=== PATIENT | male | born 1960 | race Two or more races ===

== ENCOUNTER 2025-06-26 23:35 | Inpatient (IN) | payer OTHER ==
[~2025-06-26] VITALS: Ht 177.8 cm; Wt 105.0 kg
[2025-06-27] VITALS (11 sets, daily range): BP systolic 117–136; BP diastolic 56–65; PULSE 66–72; RESP 13–19; TEMP 98.1–99; O2SAT 92–97
[2025-06-27 00:42] LABS: Hematocrit 40.2 % (41.0-53.0); Hemoglobin 13.4 g/dL (13.5-17.5); Mean Corpuscular Hemoglobin 29.1 pg (28.0-32.0); Mean Corpuscular Volume 87.4 fL (80.0-100.0); Nucleated Red Blood Cells % 0.0 %
--- NOTE | 2025-06-27 00:54 | ED.PDOC ---
Musculoskeletal HPI Comments 64 y/o obese M is BIBA for c/c shooting left hip pain, that radiates to his foot. Patient endorses on 4x day history of pain that began after sustaining a fall to the same side 4x days ago. Patient reports on falling, again, on same side, today, due to progressively worsening pain. Significant history of AFib, Anemia, Blood thinner use, CHF, and Sciatica. Denial of any additional injuries or further acute symptoms at this time. Chief Complaint: Lower Extremity Time Seen by MD: 00:15 Reviewed Notes: Nurses Notes, Rayon Coner Notes, Medications, Allergies Allergies: Coded Allergies: NO KNOWN ALLERGIES (Unverified , 06/27/25) Information Source: Patient, Emergency Med Personnel Mode of Arrival: Ambulatory Location: Left Past Medical History PAST MEDICAL HISTORY: AFIB, Anemia, CHF Past Medical History (Other): Blood thinner use Sciatica Surgical History: Denies all surgeries Family History Family History: Unknown Social History Smoker: Non-Smoker Alcohol: Denies ETOH Use Drugs: Denies Drug Use Lives In: Home All Other Systems: Reviewed and Negative (As per HPI) Physical Exam General Appearance: No Apparent Distress, Obese HEENT: Normal ENT Inspection, Pharynx Normal, TMs Normal Neck: Full Range of Motion, Non-Tender, Normal, Normal Inspection Respiratory: Chest Non-Tender, Lungs Clear, No Accessory Muscle Use, No Respiratory Distress, Normal Breath Sounds Cardiovascular: No Edema, No JVD, No Murmur, No Gallop, Normal Peripheral Pulses, Regular Rate/Rhythm Breast Exam: Deferred Gastrointestinal: No Organomegaly, Non Tender, No Pulsatile Mass, Normal Bowel Sounds, Soft Genitalia: Deferred Pelvic: Deferred Rectal: Deferred Extremities: No calf tenderness, Normal capillary refill, Normal range of motion, Swelling (edema to left foot ), Tender (diffused tenderness to LLE, extending from the hip to the foot ) Musculoskeletal : Apperance: Normal Neurologic: Alert, director of strategic marketing II-XII nml as Tested, No Motor Deficits, Normal Affect, Normal Mood, No Sensory Deficits Cerebellar Function: Normal Reflexes: Normal Skin: Dry, Normal Color, Warm, Other (erythema to left foot ) Lymphatic: No Adenopathy Was a procedure done? Was a procedure done?: No Differential Diagnosis EXT Differential Diagnosis: CHF, Deep Vein Thrombosis, Fracture, Sprain, Contusion, Strain, Neurovascular injury, Other (sciatica ) X-Ray, Labs, Meds, VS Vital Signs Date Time Temp Pulse Resp B/P (MAP) Pulse Ox O2 Delivery O2 Flow Rate FiO2 06/27/25 03:06 71 18 136/59 06/26/25 23:35 98.2 83 18 121/68 92 98.2 Lab Test 06/27/25 00:25 Range/Units White Blood Count 12.0 H 4.4-10.8 10^3/uL Red Blood Count 4.60 4.5-5.90 10^6/uL Hemoglobin 13.4 L 13.5-17.5 g/dL Hematocrit 40.2 L 41.0-53.0 % Mean Corpuscular Volume 87.4 80.0-100.0 fL Mean Corpuscular Hemoglobin 29.1 28.0-32.0 pg Mean Corpuscular Hemoglobin Concent 33.2 32.0-36.0 g/dL Red Cell Distribution Width 16.3 H 11.8-14.3 % Platelet Count 202 140-450 10^3/uL Mean Platelet Volume 9.7 6.9-10.8 fL Neutrophils (%) (Auto) 76.7 37.0-80.0 % Lymphocytes (%) (Auto) 8.5 L 10.0-50.0 % Monocytes (%) (Auto) 12.9 H 0.0-12.0 % Eosinophils (%) (Auto) 1.6 0.0-7.0 % Basophils (%) (Auto) 0.3 0.0-2.0 % Neutrophils # (Auto) 9.2 H 1.6-8.6 10 ^3/uL Lymphocytes # (Auto) 1.0 0.4-5.4 10 ^3/uL Monocytes # (Auto) 1.5 H 0-1.3 10 ^3/uL Eosinophils # (Auto) 0.2 0-0.8 10 ^3/uL Basophils # (Auto) 0 0-0.2 10 ^3/uL Nucleated Red Blood Cells 0.0 % Prothrombin Time 12.9 H 9.3-11.8 sec Prothrombin Time INR 1.24 H 0.9-1.15 Activated Partial Thromboplast Time 52.1 H 24.5-34.5 SEC Sodium Level 143 136-145 mmol/L Potassium Level 4.1 3.5-5.1 mmol/L Chloride Level 104 98-107 mmol/L Carbon Dioxide Level 28 20-31 mmol/L Anion Gap 11 5-15 Blood Urea Nitrogen 24 H 9-23 mg/dL Creatinine 1.84 H 0.700-1.30 mg/dL Glomerular Filtration Rate Calc 40 >90 mL/min BUN/Creatinine Ratio 13.0 10.0-20.0 Serum Glucose 124 H 74-106 mg/dL Lactic Acid Level 1.3 0.4-2.0 mmol/L Calcium Level 8.9 8.7-10.4 mg/dL Total Bilirubin 1.1 H 0.2-1.0 mg/dL Aspartate Amino Transferase (AST) 18 13-40 U/L Alanine Aminotransferase (ALT) 29 7-40 U/L Alkaline Phosphatase 96 46-116 U/L Total Protein 6.9 5.7-8.2 g/dL Albumin 4.0 3.2-4.8 g/dL Current Medications Medications (Trade) Dose Ordered Sig/Aliyah Route Start Time Stop Time Status Last Admin Ondansetron HCl (Zofran) 4 mg ONCE ONCE IV 06/27/25 00:15 06/27/25 00:17 DC 06/27/25 03:06 Morphine Sulfate 4 mg ONCE ONCE IV 06/27/25 00:15 06/27/25 00:17 DC 06/27/25 03:06 Cefazolin Sodium 50 ml @ 100 mls/hr ONCE ONCE IV 06/27/25 00:30 06/27/25 00:59 DC 06/27/25 03:06 Time of 1ST Reevaluation: 00:45 Reevaluation 1ST: Unchanged Patient Education/Counseling: Diagnosis, Treatment Family Education/Counseling: No Family Present Sepsis Sepsis Reasesment Focused Exam Orders: Laboratory Tests 06/27/25 00:25: Lactic Acid Level 1.3 Departure 1 Departure Time of Disposition: 03:49 Impression: Primary Impression: Cellulitis of left foot Additional Impression: Cellulitis of left lower extremity Disposition: ADMITTED INPATIENT Admit to: Med Surg Condition: Guarded Discharged With: Self Comments 64-year-old male with severe swelling of the left foot and lower leg with erythema consistent with cellulitis. Patient is having extreme pain. Lab review shows elevated white blood cell count of 12. Acute renal injury with BUN creatinine elevated at 24 and 1.84. Patient was given IV fluids and IV Ancef and vancomycin antibiotics. Patient will need to be admitted for supportive care and further workup. We will call [facility] for potential transfer. Critical Care Note Critical Care Time?: Yes (35 min-critical care time only) Critical care comment: Total critical care time: Approximately 36 minutes Due to a high probability of clinically significant, life threatening deterioration, the patient required my highest level of preparedness to intervene emergently and I personally spent this critical care time directly and personally managing the patient. This critical care time included obtaining a history; examining the patient; pulse oximetry; ordering and review of studies; arranging urgent treatment with development of a management plan; evaluation of patient's response to treatment; frequent reassessment; and, discussions with other providers. This critical care time was performed to assess and manage the high probability of imminent, life-threatening deterioration that could result in multi-organ failure. It was exclusive of separately billable procedures and treating other patients. Stability Stability form required: No Heart Score Heart Score: Heart Score Response (Comments) Value History N/A 0 EKG N/A 0 Age N/A 0 Risk Factors N/A 0 Troponin N/A 0 Total 0 I personally scribed for RAKESH NEVAREZ MD ([email or web address]) on 06/27/25 at 00:54. Electronically submitted by Gomez Deleon ([email or web address]). RAKESH NEVAREZ MD Jun 27, 2025 00:54
[2025-06-27 01:00] LABS: Alanine Aminotransferase 29 U/L (7-40); Albumin 4.0 g/dL (3.2-4.8); Alkaline Phosphatase 96 U/L (46-116); Anion Gap 11 (5-15); BUN/Creatinine Ratio 13.0 (10.0-20.0); Calcium 8.9 mg/dL (8.7-10.4); Carbon Dioxide 28 mmol/L (20-31); Chloride 104 mmol/L (98-107); INR 1.24 (0.9-1.15); Partial Thromboplastin Time 52.1 SEC (24.5-34.5); Potassium 4.1 mmol/L (3.5-5.1); Prothrombin Time 12.9 sec (9.3-11.8); Sodium 143 mmol/L (136-145); Total Protein 6.9 g/dL (5.7-8.2)
[2025-06-27 01:01] LABS: Bilirubin, Total 1.1 mg/dL (0.2-1.0)
[2025-06-27 01:06] LABS: Blood Urea Nitrogen 24 mg/dL (9-23); Glucose 124 mg/dL (74-106)
[2025-06-27] MEDS: MORPHINE SULFATE 4 MG/ML SYR/VIAL IV ONE (03:06)
[2025-06-27] MEDS: ONDANSETRON HCL 4 MG/2 ML VIAL IV ONE (03:06)
[2025-06-27] MEDS: ceFAZolin 1GM/50ML 50 ML IV ONE (03:06)
--- NOTE | 2025-06-27 03:35 | DVH ---
INDICATION: NO TRAUMA // SWELLING // PAIN COMPARISON: None TECHNIQUE: CT of the left lower extremity was performed without contrast. Volume transverse images we re obtained and reconstructed in multiple planes using bone and soft tissue algorithms. Radiation Dose Information: CT Dose: CTDI volume is 13.86 mGy. Dose-length product is 1564.73 mGy*cm FINDINGS: Moderate osteoarthritic degenerative change of the left hip includes joint space narrowing, marginal osteophytosis and acetabular and femoral subchondral sclerosis. Moderate tricompartmental osteoarthri tic tibiofemoral and patellofemoral compartment narrowing with associated osteophytosis. Moderate loss of cortical integrity and diminished mineralization of the 5th metatarsal head. These findings are nonspecific, however, may represent changes associated with osteomyelitis. There is no fracture, dislocation or aggressive osseous lesion. Moderate diffuse soft tissue edema with near water attenuation material tracking throughout the subcu taneous soft tissues of the lower leg extending into the ankle and foot. Phlegmonous change may repre sent a component of these findings. No discrete organized drainable fluid collection is present to dunn ggest abscess. Moderate suprapatellar effusion. IMPRESSION: 1. Moderate diffuse soft tissue edema with near water attenuation material tracking throughout the dunn bcutaneous soft tissues of the lower leg extending into the ankle and foot. Phlegmonous change may r epresent a component of these findings. 2. No discrete organized drainable fluid collection to suggest abscess. 3. Moderate loss of cortical integrity and diminished mineralization of the 5th metatarsal head. The se findings are nonspecific, however, may represent changes associated with osteomyelitis. 4. Moderate osteoarthritic degenerative change of the left hip and knee. 5. Moderate suprapatellar effusion.
[2025-06-27] MEDS: VANCOMYCIN 1GM/250ML KIT 250 ML IV ONE (05:55)
[2025-06-27] MEDS ORDERED: ACETAMINOPHEN 325 MG TAB PO PRN (09:00)
[2025-06-27] MEDS ORDERED: VANCOMYCIN PER PHARMACY 0 MG IV SCH (09:00)
[2025-06-27] MEDS ORDERED: ONDANSETRON HCL 4 MG/2 ML VIAL IV PRN (09:00)
--- NOTE | 2025-06-27 09:11 | DVHHP2 ---
History of Present Illness Reason for Visit: LLE pain History of Present Illness Luke Stephen is a 64-year-old male with past medical history of AFib, anemia, sciatica, CHF, laminectomy 10 years ago, and right knee surgery who presents to the ED with left lower extremity pain that started 6 days ago. Patient reports that he was seen back in January of this year for a left lower extremity open wound after running himself over with an electric wheelchair. He reports that he had to have 43 stitches in at [facility]. He also reports that he was sent home with a home health behavioral health care coordinator nurse but not on any antibiotics. Patient reports that he has been using the electric wheelchair to help him get from place to place such as doctor appointments. He reports that he does walk with a front wheel walker. He states that 6 days ago his legs felt like spaghetti noodles and gave out but he did not fall. Patient reports left foot redness swelling up to his knees. He reports the pain 10/10 sharp and constant. He states that there are no triggering or alleviating factors. He also reports that the home health behavioral health care coordinator nurse from [place] stated that the foot looks "fine". Patient on also states that he does not use any home oxygen. Patient denies any recent trauma or injury, recent sick contacts, recent travels, recent ingestion of spoiled food, fever, chills, lightheadedness, dizziness, chest pain, shortness of breath, abdominal pain, nausea, vomiting, or diarrhea. Patient reports that he never fell. Cardiovascular: AFIB, CHF Heme/Onc: Anemia NOS Past Medical History Sciatica Past Surgical History: Other (Laminectomy and right knee surgery) Family History: Cancer, Other (Mom with bone cancer) Smoke: No ALCOHOL: none Drugs: None Lives: Alone Domestic Violence: Neg Review of Systems Musculoskeletal: leg pain Skin: Other (LLE erythema with wound, POA ) Allergies: Coded Allergies: NO KNOWN ALLERGIES (Unverified , 06/27/25) Exam Vital Signs Vital Signs Date Time Temp Pulse Resp B/P (MAP) Pulse Ox O2 Delivery O2 Flow Rate FiO2 06/27/25 08:00 71 13 94 Nasal Cannula* 2 28 06/27/25 08:00 98.4 117/68 (84) 98.4 General Appearance: Alert, Oriented X3, Cooperative, No acute distress HEENT: Atraumatic, PERRLA, EOMI, Mucous membr. moist/pink Respiratory: Normal air movement Cardiovascular: Regular rate, Normal S1, Normal S2 Abdominal: Normal bowel sounds, Soft Neuro: Normal speech, Sensation intact Psych/Mental Status: Mental status NL, Mood NL Labs/Xrays Labs Test 06/27/25 00:25 Range/Units White Blood Count 12.0 H 4.4-10.8 10^3/uL Red Blood Count 4.60 4.5-5.90 10^6/uL Hemoglobin 13.4 L 13.5-17.5 g/dL Hematocrit 40.2 L 41.0-53.0 % Mean Corpuscular Volume 87.4 80.0-100.0 fL Mean Corpuscular Hemoglobin 29.1 28.0-32.0 pg Mean Corpuscular Hemoglobin Concent 33.2 32.0-36.0 g/dL Red Cell Distribution Width 16.3 H 11.8-14.3 % Platelet Count 202 140-450 10^3/uL Mean Platelet Volume 9.7 6.9-10.8 fL Neutrophils (%) (Auto) 76.7 37.0-80.0 % Lymphocytes (%) (Auto) 8.5 L 10.0-50.0 % Monocytes (%) (Auto) 12.9 H 0.0-12.0 % Eosinophils (%) (Auto) 1.6 0.0-7.0 % Basophils (%) (Auto) 0.3 0.0-2.0 % Neutrophils # (Auto) 9.2 H 1.6-8.6 10 ^3/uL Lymphocytes # (Auto) 1.0 0.4-5.4 10 ^3/uL Monocytes # (Auto) 1.5 H 0-1.3 10 ^3/uL Eosinophils # (Auto) 0.2 0-0.8 10 ^3/uL Basophils # (Auto) 0 0-0.2 10 ^3/uL Nucleated Red Blood Cells 0.0 % Prothrombin Time 12.9 H 9.3-11.8 sec Prothrombin Time INR 1.24 H 0.9-1.15 Activated Partial Thromboplast Time 52.1 H 24.5-34.5 SEC Sodium Level 143 136-145 mmol/L Potassium Level 4.1 3.5-5.1 mmol/L Chloride Level 104 98-107 mmol/L Carbon Dioxide Level 28 20-31 mmol/L Anion Gap 11 5-15 Blood Urea Nitrogen 24 H 9-23 mg/dL Creatinine 1.84 H 0.700-1.30 mg/dL Glomerular Filtration Rate Calc 40 >90 mL/min BUN/Creatinine Ratio 13.0 10.0-20.0 Serum Glucose 124 H 74-106 mg/dL Lactic Acid Level 1.3 0.4-2.0 mmol/L Calcium Level 8.9 8.7-10.4 mg/dL Total Bilirubin 1.1 H 0.2-1.0 mg/dL Aspartate Amino Transferase (AST) 18 13-40 U/L Alanine Aminotransferase (ALT) 29 7-40 U/L Alkaline Phosphatase 96 46-116 U/L Total Protein 6.9 5.7-8.2 g/dL Albumin 4.0 3.2-4.8 g/dL INDICATION: NO TRAUMA // SWELLING // PAIN COMPARISON: None TECHNIQUE: CT of the left lower extremity was performed without contrast. Volume transverse images were obtained and reconstructed in multiple planes using bone and soft tissue algorithms. Radiation Dose Information: CT Dose: CTDI volume is 13.86 mGy. Dose-length product is 1564.73 mGy*cm FINDINGS: Moderate osteoarthritic degenerative change of the left hip includes joint space narrowing, marginal osteophytosis and acetabular and femoral subchondral sclerosis. Moderate tricompartmental osteoarthritic tibiofemoral and patellofemoral compartment narrowing with associated osteophytosis. Moderate loss of cortical integrity and diminished mineralization of the 5th metatarsal head. These findings are nonspecific, however, may represent changes associated with osteomyelitis. There is no fracture, dislocation or aggressive osseous lesion. Moderate diffuse soft tissue edema with near water attenuation material tracking throughout the subcutaneous soft tissues of the lower leg extending into the ankle and foot. Phlegmonous change may represent a component of these findings. No discrete organized drainable fluid collection is present to suggest abscess. Moderate suprapatellar effusion. IMPRESSION: 1. Moderate diffuse soft tissue edema with near water attenuation material tracking throughout the subcutaneous soft tissues of the lower leg extending into the ankle and foot. Phlegmonous change may represent a component of these findings. 2. No discrete organized drainable fluid collection to suggest abscess. 3. Moderate loss of cortical integrity and diminished mineralization of the 5th metatarsal head. These findings are nonspecific, however, may represent changes associated with osteomyelitis. 4. Moderate osteoarthritic degenerative change of the left hip and knee. 5. Moderate suprapatellar effusion. Exam: US LEFT LOWER EXTREMITY ULTRASOUN Clinical History: left knee r/o effusion Comparison: CT LEFT LOWER EXTREMITY W/O CON on DOS: 06/27/25 Technique: Targeted sonographic evaluation of the soft tissues of the left knee was obtained utilizing grayscale and color Doppler imaging. Findings/Impression: Moderate left knee joint effusion measures 6.6 x 1.6 x 6.0 cm. SEPSIS Sepsis Screen Date sepsis recognized/suspect: Jun 27, 2025 Time Sepsis recognized/suspect: 799 Recent Procedure: No On Antibiotic Therapy: Yes Respiratory Rate >20: No Heart Rate >90: No Temp<36 C (96.8 F) or >38.3 C: No SBP <90 or MAP <65 mmHG: No New Acute Mental Status Change: No Is the patient on CPAP, BIPAP,: No Physician Orders Left Lower Extremity W/O Con (06/27/25 02:05) Imaging Transfer Request (06/27/25 05:17) Vital Signs Date Time Temp Pulse Resp B/P (MAP) Pulse Ox O2 Delivery O2 Flow Rate FiO2 06/27/25 08:00 71 13 94 Nasal Cannula* 2 28 06/27/25 08:00 98.4 71 13 117/68 (84) 94 98.4 06/27/25 07:00 65 12 128/70 (89) 94 06/27/25 06:00 98.9 72 17 100/70 (80) 92 98.9 06/27/25 06:00 72 17 92 Nasal Cannula* 1 24 06/27/25 03:06 71 18 136/59 Laboratory Tests Test 06/27/25 00:25 Lactic Acid Level 1.3 mmol/L (0.4-2.0) White Blood Count 12.0 10^3/uL (4.4-10.8) H Medications Medications Dose Ordered Sig/Aliyah Route Start Time Stop Time Status Last Admin Dose Admin Cefazolin Sodium 50 ml @ 100 mls/hr ONCE ONCE IV 06/27/25 00:30 06/27/25 00:59 DC 06/27/25 03:06 100 MLS/HR Morphine Sulfate 4 mg ONCE ONCE IV 06/27/25 00:15 06/27/25 00:17 DC 06/27/25 03:06 4 MG Ondansetron HCl 4 mg ONCE ONCE IV 06/27/25 00:15 06/27/25 00:17 DC 06/27/25 03:06 4 MG Vancomycin HCl 250 ml @ 250 mls/hr ONCE ONCE IV 06/27/25 00:30 06/27/25 01:29 DC 06/27/25 05:55 250 MLS/HR Assessment/Plan Assessment/Plan Assessment Intractable LLE pain LLE lateral wound, POA ? Left lower extremity abscess versus cellulitis Moderate left knee joint effusion measures 6.6 x 1.6 x 6.0 cm. Acute hypoxic respiratory failure on supportive oxygen Possible osteomyelitis Leukocytosis likely due to osteomyelitis versus cellulitis versus abscess Moderate left knee effusion Obesity TAD likely prerenal Hyperbilirubinemia History of AFib History of anemia History of CHF History of sciatica History of right knee surgery Plan Admit to med surge Supportive oxygen Antiemetics Pain management Ultrasound left knee Strict I&Os Daily weight IV antibiotics - vancomycin + Zosyn Wound consult Wound culture with Gram stain esr crp Lactic level Blood cultures UA UDS CT lower extremity noted Diet Home medications reconciled DVT prophylaxis-patient on dabigatran PUD prophylaxis-not indicated no history of GERD or GI bleed Discussed plan of care with patient and nurse Consider podiatry consult Ortho consult Counseled patient on lifestyle modifications, diet, and exercise [id number] Preventive counseling healthy eating habits, physical activity, and regular checkups Plan discussed with: Patient Date of Service: Jun 27, 2025 Billing Provider: THOMAS PINTO Common Visit Codes: [id number] INP/OBS CARE (HIGH) Secondary Visit Codes: [id number] COUNSELING IND THOMAS PINTO Jun 27, 2025 09:11
--- NOTE | 2025-06-27 09:52 | DVH ---
Exam: US LEFT LOWER EXTREMITY ULTRASOUN Clinical History: left knee r/o effusion Comparison: CT LEFT LOWER EXTREMITY W/O CON on DOS: 06/27/25 Technique: Targeted sonographic evaluation of the soft tissues of the left knee was obtained utilizing grayscal e and color Doppler imaging. Findings/Impression: Moderate left knee joint effusion measures 6.6 x 1.6 x 6.0 cm.
[2025-06-27] MEDS ORDERED: PREG200C36 PO (10:14)
[2025-06-27] MEDS ORDERED: DABI150C7 PO (10:14)
[2025-06-27] MEDS ORDERED: AMIO200T13 PO (10:14)
[2025-06-27] MEDS ORDERED: CARV6.2551 PO (10:14)
[2025-06-27] MEDS ORDERED: ATOR40TA52 PO (10:14)
[2025-06-27] MEDS ORDERED: OMEP1CAP70 PO (10:14)
[2025-06-27] MEDS ORDERED: DULO1CAP5 PO (10:14)
[2025-06-27] MEDS ORDERED: ALBUTEROL SULF 2.5 MG/0.5ML(0.5%) NEB SOLN NEB PRN (10:30)
[2025-06-27] MEDS ORDERED: IPRATROPIUM BROM 0.5 MG/2.5ML INH SOL NEB PRN (10:30)
[2025-06-27 11:17] LABS: Urine Protein, UAD TRACE (Negative)
[2025-06-27] MEDS: MORPHINE SULFATE INJ 2 MG/ml SYRG IV PRN (11:22)
[2025-06-27] MEDS: DABIGATRAN 75 MG CAP PO SCH (11:23)
[2025-06-27 11:28] LABS: Amphetamine Screen, Urine Neg (NEGATIVE); Benzodiazephine Screen, Urine Neg (NEGATIVE)
[2025-06-27 11:29] LABS: Cannabinoid Screen, Urine Pos (NEGATIVE)
[2025-06-27 11:30] LABS: Barbiturate Scree,Urine Neg (NEGATIVE); Cocaine Screen, Urine Neg (NEGATIVE); Opiate Scree,Urine Pos (NEGATIVE); Phencyclidine Screen, Urine Neg (NEGATIVE)
[2025-06-27] MEDS ORDERED: BIOT1CAP PO (11:47)
[2025-06-27] MEDS ORDERED: FERR324T4 PO (11:47)
[2025-06-27] MEDS ORDERED: BACL10TA PO (11:47)
[2025-06-27] MEDS ORDERED: MULT-1018 PO (11:47)
[2025-06-27] MEDS ORDERED: POM (11:47)
[2025-06-27] MEDS ORDERED: ASCO500T11 PO (11:47)
[2025-06-27] MEDS ORDERED: FERR325T24 PO (11:56)
--- NOTE | 2025-06-27 12:05 | DVH ---
CLINICAL HISTORY: r/o dvt TECHNIQUE: Color and duplex doppler imagine of the bilateral lower extremity veins was performed. Ves lucio compression and augmentation if possible was also performed. COMPARISON: US LEFT LOWER EXTREMITY ULTRASOUN on DOS: 06/27/25, US BILAT LOWER DVT on DOS: 10/18/24 FINDINGS: Right Lower Extremity: Right common femoral vein: Normal compressibility and flow. Right superficial femoral vein: Normal compressibility and flow. Right popliteal vein: Normal compressibility and flow. Proximal calf veins demonstrate flow. There is a 4.4 cm Banerjee's cyst. Left Lower Extremity: Left common femoral vein: Normal compressibility and flow. Left superficial femoral vein: Normal compressibility and flow. Left popliteal vein: Normal compressibility and flow. Proximal calf veins demonstrate flow. There is a mildly enlarged 1.1 cm left inguinal lymph node. IMPRESSION: No evidence for DVT. 4.4 cm right Banerjee's cyst. Mildly enlarged left inguinal lymph node.
[2025-06-27] MEDS ORDERED: PATIENTS OWN MEDICATION (Pregabalin 1 CAP) PO SCH (14:00)
[2025-06-27] MEDS: PREGABALIN 25 MG CAP PO SCH (14:29)
[2025-06-27] MEDS: PREGABALIN CAPSULE 75 MG CAP PO SCH (14:29)
[2025-06-27] MEDS: PIPERACILLIN-TAZOB 3.375GM 100 ML IV SCH (14:29)
[2025-06-27] MEDS: VANCOMYCIN 1.5GM/250ML 250 ML IV SCH (20:52)
[2025-06-27] MEDS ORDERED: PATIENTS OWN MEDICATION (Carvedilol 1 TAB) PO SCH (22:00)
[2025-06-27] MEDS: ATORVASTATIN 20 MG TAB PO SCH (22:00)
[2025-06-27] MEDS: CARVEDILOL 3.125 MG TAB PO SCH (22:00)
[2025-06-27] MEDS: HYDROcodone-ACET 5/325MG TAB PO PRN (22:03)
[2025-06-28] VITALS (10 sets, daily range): BP systolic 109–126; BP diastolic 47–70; PULSE 61–68; RESP 16–18; TEMP 97.8–98.7; O2SAT 90–96
[2025-06-28 06:59] LABS: Hematocrit 35.7 % (41.0-53.0); Hemoglobin 11.9 g/dL (13.5-17.5); Mean Corpuscular Hemoglobin 28.7 pg (28.0-32.0); Mean Corpuscular Volume 86.2 fL (80.0-100.0); Nucleated Red Blood Cells % 0.1 %
[2025-06-28 07:14] LABS: Alanine Aminotransferase 27 U/L (7-40); Albumin 3.4 g/dL (3.2-4.8); Alkaline Phosphatase 97 U/L (46-116); Anion Gap 10 (5-15); BUN/Creatinine Ratio 13.5 (10.0-20.0); Bilirubin, Total 1.0 mg/dL (0.2-1.0); Blood Urea Nitrogen 21 mg/dL (9-23); Calcium 8.7 mg/dL (8.7-10.4); Carbon Dioxide 29 mmol/L (20-31); Chloride 102 mmol/L (98-107); Potassium 3.7 mmol/L (3.5-5.1); Sodium 141 mmol/L (136-145); Total Protein 6.3 g/dL (5.7-8.2)
[2025-06-28 07:17] LABS: Glucose 134 mg/dL (74-106)
[2025-06-28] MEDS: FUROSEMIDE 40 MG/4 ML VIAL IV SCH (09:42)
[2025-06-28] MEDS: PANTOPRAZOLE 40 MG TAB PO SCH (09:44)
[2025-06-28] MEDS: AMIODARONE HCL 200 MG TAB PO SCH (09:44)
[2025-06-28] MEDS: ENOXAPARIN SOD 40 MG/0.4 ML SYRINGE SC SCH (09:46)
[2025-06-28] MEDS ORDERED: PATIENTS OWN MEDICATION (Atorvastatin Calcium 1 TAB) PO SCH (10:00)
[2025-06-28] MEDS ORDERED: PATIENTS OWN MEDICATION (Omeprazole (Omeprazole Dr) 1 CAP) PO SCH (10:00)
[2025-06-28] MEDS ORDERED: HYDROcodone-ACET 5/325MG TAB PO PRN (12:00)
--- NOTE | 2025-06-28 14:29 | DVH ---
EXAM: XY CHEST XRAY 1 VIEW Indication: SOB Technique: Single frontal view of the chest was obtained Comparison: CT CT ANGIO CHEST CONTRAST on DOS: 10/18/24, XY CHEST PORTABLE on DOS: 10/18/24 FINDINGS: Lines and Tubes: None Lungs: Right basilar opacities suggestive of atelectasis. No pneumothorax. Cardiomediastinal contours: Cardiomegaly. Bones: No acute osseous abnormality. IMPRESSION: Right basilar opacities suggestive of atelectasis.
--- NOTE | 2025-06-28 14:59 | DVHPNRES ---
Progress Note Date Seen: Jun 28, 2025 Resident Creating Document: KEM DURHAM RESIDENT Medical Necessity Reason Pt with a Central, PICC or Fol: No Subjective Review of Systems 64-year-old male with past medical history of AFib, anemia, sciatica, CHF, laminectomy 10 years ago, and right knee surgery who presents to the ED with left lower extremity pain that started 6 days ago. Patient reports that he was seen back in January of this year for a left lower extremity open wound after running himself over with an electric wheelchair. He reports that he had to have 43 stitches in at [facility]. He also reports that he was sent home with a home health health care recruiter nurse but not on any antibiotics. Patient reports that he has been using the electric wheelchair to help him get from place to place such as doctor appointments. He reports that he does walk with a front wheel walker. He states that 6 days ago his legs felt like spaghetti noodles and gave out but he did not fall. Patient reports left foot redness swelling up to his knees. He reports the pain 10/10 sharp and constant. He states that there are no triggering or alleviating factors. He also reports that the home health health care recruiter nurse from [place] stated that the foot looks "fine". Patient on also states that he does not use any home oxygen. Patient denies any recent trauma or injury, recent sick contacts, recent travels, recent ingestion of spoiled food, fever, chills, lightheadedness, dizziness, chest pain, shortness of breath, abdominal pain, nausea, vomiting, or diarrhea. Objective vital signs Vital Sign Date Time Temp Pulse Resp B/P (MAP) Pulse Ox O2 Delivery O2 Flow Rate FiO2 06/28/25 12:35 97.9 66 18 110/47 (68) 94 97.9 06/28/25 08:36 Nasal Cannula 2.0 06/28/25 08:36 28 Total Intake and Output 06/27/25 06/27/25 06/28/25 15:00 23:00 07:00 Intake Total 480 ml 0 ml 200 ml Output Total 100 ml 150 ml Balance 380 ml 0 ml 50 ml medications Current Medications Medications Dose Ordered Sig/Aliyah Route Start Time Stop Time Status Last Admin Dose Admin Acetaminophen/ Hydrocodone Bitart 1 tab Q4HP PRN PO 06/27/25 09:00 06/27/25 22:03 1 TAB Ondansetron HCl 4 mg Q4HP PRN IV 06/27/25 09:00 Acetaminophen 650 mg Q6HP PRN PO 06/27/25 09:00 Morphine Sulfate 2 mg Q4HPRN PRN IV 06/27/25 09:00 06/27/25 11:22 2 MG Vancomycin HCl 0 ml @ 0 mls/hr UD IV 06/27/25 09:00 Piperacillin Sod/ Tazobactam Sod 100 ml @ 25 mls/hr Q8HR IV 06/27/25 14:00 06/28/25 14:35 25 MLS/HR Amiodarone HCl 200 mg DAILY PO 06/28/25 10:00 06/28/25 09:44 200 MG Patient Own Medication 1 tab DAILY PO 06/28/25 10:00 UNV Patient Own Medication 1 tab BID PO 06/27/25 22:00 UNV Patient Own Medication 1 cap DAILY PO 06/28/25 10:00 UNV Patient Own Medication 1 cap TID PO 06/27/25 14:00 UNV Enoxaparin Sodium 40 mg DAILY SC 06/28/25 10:00 06/28/25 09:46 40 MG Duloxetine HCl 30 mg DAILY PO 06/28/25 10:00 Hold Furosemide 40 mg DAILY IV 06/28/25 10:00 06/28/25 09:42 40 MG Albuterol 2.5 mg Q4HPRN PRN NEB 06/27/25 10:30 Ipratropium [place] 0.5 mg Q4HPRN PRN NEB 06/27/25 10:30 Dabigatran 150 mg BID PO 06/27/25 10:32 06/28/25 09:42 150 MG Atorvastatin Calcium 40 mg HS PO 06/27/25 22:00 06/27/25 22:00 40 MG Carvedilol 6.25 mg BID PO 06/27/25 22:00 06/28/25 09:44 6.25 MG Pantoprazole Sodium 40 mg DAILY PO 06/28/25 10:00 06/28/25 09:44 40 MG Pregabalin 50 mg TID PO 06/27/25 14:00 06/28/25 14:35 50 MG Pregabalin 150 mg TID PO 06/27/25 14:00 06/28/25 14:34 150 MG Vancomycin HCl 250 ml @ 166.667 mls/hr Q24H IV 06/27/25 20:00 06/27/25 20:52 166.667 MLS/HR Acetaminophen/ Hydrocodone Bitart 1 tab Q6HPRN PRN PO 06/28/25 12:00 Examination General Appearance: Alert, Oriented X3, Cooperative, No acute distress HEENT: Atraumatic, PERRLA, EOMI, Mucous membr. moist/pink Respiratory: Normal air movement Cardiovascular: Regular rate, Normal S1, Normal S2 Abdominal: Normal bowel sounds, Soft Neuro: Normal speech, Sensation intact Psych/Mental Status: Mental status NL, Mood NL Extremities: Swollen left knee with mild tenderness; very swollen left foot and ankle with tenderness laboratory and microbiology Laboratory Tests 06/28/25 06:18 Test 06/28/25 06:18 Range/Units Serum Glucose 134 H 74-106 mg/dL Microbiology Date/Time Source Procedure Growth Status 06/27/25 10:32 Leg Left Gram Stain Pending Resulted 06/27/25 10:32 Leg Left Wound Culture - Preliminary Resulted 06/27/25 00:27 Blood Blood Culture - Preliminary NO GROWTH AFTER 24 HOURS OF INCUBATION. Resulted Labs and/or images reviewed: Labs reviewed by me, Image(s) reviewed by me Problem List/Assessment/Plan Problem List/Assessment/Plan # R/o Sepsis # LLE lateral wound, POA # Left lower extremity abscess vs cellulitis # Moderate left knee joint effusion # ? Osteomyelitis - Imaging showed Moderate diffuse soft tissue edema with near water attenuation material tracking throughout the subcutaneous soft tissues of the lower leg extending into the ankle and foot. Phlegmonous change may represent a component of these findings and Moderate suprapatellar effusion. Moderate loss of cortical integrity and diminished mineralization of the 5th metatarsal head. These findings are nonspecific, however, may represent changes associated with osteomyelitis. - USG showed Moderate left knee joint effusion measures 6.6 x 1.6 x 6.0 cm. -supportive management with the pain medications as needed - IV antibiotics - vancomycin + Zosyn - Wound consult - Wound culture with Gram stain - Consider podiatry consult - Ortho consult # Acute hypoxic respiratory failure on supportive oxygen likely due to pain # Obesity Class 1, Life style modifications # TAD likely due to VMN -monitor lab -avoid nephrotoxic agents # mild transaminitis, Hyperbilirubinemia -monitor lab for now # History of AFib , rate controlled # History of CHF , follow strict I and O, daily weights Home medications reconciled DVT prophylaxis-patient on dabigatran PUD prophylaxis-not indicated no history of GERD or GI bleed Patient is unstable to be transferred to [facility] Goals of care discussed with the patient for 20 minutes: Full code status Discussed plan of care with Dr Sky Counseled patient on lifestyle modifications, diet, and exercise Plan discussed with: Patient, Other (RN) My Orders My Orders Orders - KEM DURHAM RESIDENT Procedure Category Date Status Time Chest Xray 1 View XY 06/28/25 Resulted 11:39 Basic Metabolic Panel LAB 06/29/25 Verified 04:00 Complete Blood Count LAB 06/29/25 Verified 04:00 Hydrocodone-Acet PHA 06/28/25 In Process 5/325mg Tab ([place] 12:00 Addendum Addendum Addendum I was physically present for the pool portions of the service provided to patient by THE RESIDENT. I have reviewed the documentation, discussed the case with resident and agree with the resident's documentation except as noted. Also the patient's clinical case was discussed with the patient's nurse. This medical document was created using an electronic medical record system with computerized dictation system. Although this document has been carefully reviewed, there might still be some phonetic and typographical errors. These areas are purely typographical due to imperfections of the software programs, and do not reflect any compromise in the patient's medical care. Late signature. Date of Service: Jun 28, 2025 Billing Provider: MARIA GUADALUPE SKY MD Common Visit Codes: [id number] INP/OBS CARE(HIGH) Secondary Visit Codes: [id number] CARE PLAN 30 MINUTES (20 minutes) KEM DURHAM RESIDENT Jun 28, 2025 14:58 MARIA GUADALUPE SKY MD Jun 29, 2025 08:11
[2025-06-29] VITALS (11 sets, daily range): BP systolic 125–137; BP diastolic 56–78; PULSE 66–72; RESP 16–18; TEMP 36.8; O2SAT 92–95
[2025-06-29 07:49] LABS: Hematocrit 35.9 % (41.0-53.0); Hemoglobin 12.4 g/dL (13.5-17.5); Mean Corpuscular Hemoglobin 29.9 pg (28.0-32.0); Mean Corpuscular Volume 86.3 fL (80.0-100.0); Nucleated Red Blood Cells % 0.0 %
[2025-06-29 08:03] LABS: Anion Gap 13 (5-15); Carbon Dioxide 28 mmol/L (20-31); Chloride 101 mmol/L (98-107); Sodium 142 mmol/L (136-145)
[2025-06-29 08:05] LABS: Calcium 8.7 mg/dL (8.7-10.4)
[2025-06-29 08:09] LABS: BUN/Creatinine Ratio 15.2 (10.0-20.0); Blood Urea Nitrogen 20 mg/dL (9-23); Glucose 89 mg/dL (74-106)
[2025-06-29 08:10] LABS: Potassium 3.5 mmol/L (3.5-5.1)
--- NOTE | 2025-06-29 08:11 | DVHPN2 ---
Subjective Continues to complain of left lower extremities pain specifically in the foot/ankle Reviewed: Care Plan, H&P, Labs, Medications, Previous Orders, Radiology Changes from previous H/P or p: No Changes Objective Vitals Vital Signs Date Time Temp Pulse Resp B/P (MAP) Pulse Ox O2 Delivery O2 Flow Rate FiO2 06/29/25 06:44 94 Nasal Cannula 2.0 06/29/25 06:44 28 06/29/25 05:41 84 16 130/74 06/29/25 05:00 97.9 97.9 Intake/Output Intake and Output 06/29/25 07:00 Intake Total 860 ml Output Total 1640 ml Balance -780 ml Intake Oral 760 ml IV Total 100 ml Output Urine Total 1640 ml General Appearance: Alert, Oriented X3, Cooperative, mild distress HEENT: Atraumatic Lungs: Clear to auscultation, Normal air movement Cardiovascular: Regular rate, Normal S1, Normal S2 Abdomen: Normal bowel sounds, Soft, No tenderness Extremities: Other (Mildly swollen left knee with mild tenderness; severely swollen left ankle/foot with tenderness) Neuro: Normal speech, Cranial nerves 3-12 NL Skin: Other (Covered wound of lower left leg; present on admission) Psych/Mental Status: Mental status NL, Mood NL Medications Current Medications Medications Dose Ordered Sig/Aliyah Route Start Time Stop Time Status Last Admin Dose Admin Acetaminophen/ Hydrocodone Bitart 1 tab Q4HP PRN PO 06/27/25 09:00 06/27/25 22:03 1 TAB Ondansetron HCl 4 mg Q4HP PRN IV 06/27/25 09:00 Acetaminophen 650 mg Q6HP PRN PO 06/27/25 09:00 Morphine Sulfate 2 mg Q4HPRN PRN IV 06/27/25 09:00 06/29/25 05:11 2 MG Vancomycin HCl 0 ml @ 0 mls/hr UD IV 06/27/25 09:00 Piperacillin Sod/ Tazobactam Sod 100 ml @ 25 mls/hr Q8HR IV 06/27/25 14:00 06/29/25 05:12 25 MLS/HR Amiodarone HCl 200 mg DAILY PO 06/28/25 10:00 06/28/25 09:44 200 MG Patient Own Medication 1 tab DAILY PO 06/28/25 10:00 UNV Patient Own Medication 1 tab BID PO 06/27/25 22:00 UNV Patient Own Medication 1 cap DAILY PO 06/28/25 10:00 UNV Patient Own Medication 1 cap TID PO 06/27/25 14:00 UNV Enoxaparin Sodium 40 mg DAILY SC 06/28/25 10:00 06/28/25 09:46 40 MG Duloxetine HCl 30 mg DAILY PO 06/28/25 10:00 Hold Furosemide 40 mg DAILY IV 06/28/25 10:00 06/28/25 09:42 40 MG Albuterol 2.5 mg Q4HPRN PRN NEB 06/27/25 10:[address] [place] 0.5 mg Q4HPRN PRN NEB 06/27/25 10:30 Dabigatran 150 mg BID PO 06/27/25 10:32 06/28/25 22:45 150 MG Atorvastatin Calcium 40 mg HS PO 06/27/25 22:00 06/28/25 22:45 40 MG Carvedilol 6.25 mg BID PO 06/27/25 22:00 06/28/25 22:47 6.25 MG Pantoprazole Sodium 40 mg DAILY PO 06/28/25 10:00 06/28/25 09:44 40 MG Pregabalin 50 mg TID PO 06/27/25 14:00 06/28/25 22:46 50 MG Pregabalin 150 mg TID PO 06/27/25 14:00 06/28/25 22:46 150 MG Vancomycin HCl 250 ml @ 166.667 mls/hr Q24H IV 06/27/25 20:00 06/28/25 22:42 166.667 MLS/HR Acetaminophen/ Hydrocodone Bitart 1 tab Q6HPRN PRN PO 06/28/25 12:00 Laboratory Results Laboratory Tests 06/29/25 06:05 Chemistry Test 06/29/25 06:05 Calcium Level 8.7 mg/dL (8.7-10.4) Urinalysis Test 06/27/25 09:53 Urine Color Yellow (Yellow) Urine Clarity Clear (Clear) Urine pH 5.5 (5.0-9.0) Urine Specific [place] 1.023 (1.001-1.035) Urine Protein Trace (Negative) H Urine Ketones Negative (Negative) Urine Blood Negative /uL (Negative) Urine Nitrite Negative (Negative) Urine Bilirubin Negative (Negative) Urine Urobilinogen 2 mg/dL (Negative) H Urine Leukocyte Esterase Negative /uL (Negative) Urine RBC 1 /hpf (0 - 3) Urine Microscopic WBC 2 /HPF (0-3) Urine Squamous Epithelial Cells None seen /hpf (<5) Urine Bacteria None seen /hpf (None Seen) Urine Glucose Normal mg/dL (Normal) Microbiology Microbiology Date/Time Source Procedure Growth Status 06/27/25 10:32 Leg Left Gram Stain - Final Resulted 06/27/25 10:32 Leg Left Wound Culture - Preliminary Resulted 06/27/25 00:27 Blood Blood Culture - Preliminary NO GROWTH AFTER 48 HOURS OF INCUBATION. Resulted Labs and/or images reviewed: Labs reviewed by me, Image(s) reviewed by me Assessment/Plan Assessment/Plan Covering: Sepsis due to left lower extremity cellulitis in the setting of infected wound and suspected osteomyelitis of left foot Moderate left knee effusion Acute hypoxic respiratory failure; unclear etiology TAD in the setting of sepsis; most likely vasomotor nephropathy Elevated LFTs History of AFib; on dabigatran Hypertensive heart disease with congestive heart failure Left lower extremities bladder wound; present on admission Marijuana use disorder Obesity Reviewed available lab work and imaging studies Ordered duplex ultrasound for left lower extremities in the setting of severe edema to rule out decrease in arterial blood supply; results as below The patient declined MRI of left ankle/foot; prefers MRI to be done at [facility] To continue broad-spectrum IV antibiotics upon transfer to [facility] To continue antihypertensive medications and adjust according to blood pressure monitoring at [facility] To continue oxygen therapy as needed at [facility] and during transfer To avoid nephrotoxic agents Reviewed the available blood cultures and wound cultures Consulted Orthopedic surgery for moderate left knee effusion and consulted Podiatry for suspected osteomyelitis of left foot; unfortunately none evaluated the patient during this admission Counseled on adopting healthy lifestyle with diet and exercise in order to lose weight Counseled on marijuana use cessation for 16 minutes Stable to be transferred to [facility]; available medical records was transferred to [facility] Transfer paperwork was filled and signed [facility] Entry. This medical document was created using an electronic medical record system with computerized dictation system. Although this document has been carefully reviewed, there might still be some phonetic and typographical errors. These areas are purely typographical due to imperfections of the software programs, and do not reflect any compromise in the patient's medical care. Plan discussed with: Patient, Other (Nurse) My Orders Orders - MARIA GUADALUPE PHOENIX MD Procedure Category Date Status Time Electrocardigram EKG 06/28/25 Logged 13:37 Date of Service: Jun 29, 2025 Billing Provider: MARIA GUADALUPE PHOENIX MD Common Visit Codes: [id number] INP/OBS CARE(HIGH) Secondary Visit Codes: [id number] CHNG SMOKING >10MIN (16 minutes) MARIA GUADALUPE PHOENIX MD Jun 29, 2025 08:11
[2025-06-29] MEDS ORDERED: CICL80AE2 INH (09:20)
--- NOTE | 2025-06-29 14:10 | DVH ---
Left Lower Extremity Arterial Duplex Clinical History: To r/o PAD. Thank You! Comparison: US BILAT LOWER DVT on DOS: 06/27/25, US LEFT LOWER EXTREMITY ULTRASOUN on DOS: 06/27/25, CT LEFT LOWER EXTREMITY W/O CON on DOS: 06/27/25, US BILAT LOWER DVT on DOS: 10/18/24 Technique: Duplex Doppler evaluation including color Doppler and spectral/pulsed waveform analysis of the lower extremity arteries was performed. Findings: LEFT: Peak systolic velocities are as follows: ELECTRIC BLASTING CAP ASSEMBLER 184 cm/s Deep femoral 115 cm/s SFA proximal 156 cm/s SFA mid-portion 156 cm/s SFA distal 141 cm/s Popliteal 85 cm/s Posterior tibial 82 cm/s Anterior tibial 135 cm/s Peroneal n/a cm/s Dorsalis pedis 135 cm/s The waveforms are triphasic with diastolic flow. IMPRESSION: 20 to 49% stenosis of the left common femoral artery and left proximal and mid superficial femoral ar kendra based on peak systolic velocity criteria. REFERENCE VALUES, [facility] ([facility]) vascular Imaging Lab Criteria: Peak systolic velocity rang es (in cm/sec) are as follows: <150 cm/s - <20 % stenosis 150-200 cm/s - 20-49% stenosis 200-300 cm/s - 50-75% stenosis >300 cm/s -> 75% stenosis
--- NOTE | 2025-06-29 18:28 | DVHDS2 ---
Discharge Summary Date of Admission Jun 27, 2025 at 08:59 Date of Discharge: Jun 29, 2025 Admitting Diagnosis Left lower extremity wound with swelling and pain Wounds: Left lower extremity wound; present on admission Labs/Diagnostic Data: Laboratory Results Test 06/29/25 06:05 06/28/25 06:18 06/27/25 11:02 06/27/25 09:53 White Blood Count 9.0 10^3/uL (4.4-10.8) Red Blood Count 4.16 10^6/uL (4.5-5.90) Hemoglobin 12.4 g/dL (13.5-17.5) Hematocrit 35.9 % (41.0-53.0) Mean Corpuscular Volume 86.3 fL (80.0-100.0) Mean Corpuscular Hemoglobin 29.9 pg (28.0-32.0) Mean Corpuscular Hemoglobin Concent 34.6 g/dL (32.0-36.0) Red Cell Distribution Width 15.9 % (11.8-14.3) Platelet Count 233 10^3/uL (140-450) Mean Platelet Volume 9.2 fL (6.9-10.8) Neutrophils (%) (Auto) 74.3 % (37.0-80.0) Lymphocytes (%) (Auto) 11.7 % (10.0-50.0) Monocytes (%) (Auto) 10.1 % (0.0-12.0) Eosinophils (%) (Auto) 3.5 % (0.0-7.0) Basophils (%) (Auto) 0.4 % (0.0-2.0) Neutrophils # (Auto) 6.7 10 ^3/uL (1.6-8.6) Lymphocytes # (Auto) 1.1 10 ^3/uL (0.4-5.4) Monocytes # (Auto) 0.9 10 ^3/uL (0-1.3) Eosinophils # (Auto) 0.3 10 ^3/uL (0-0.8) Basophils # (Auto) 0 10 ^3/uL (0-0.2) Nucleated Red Blood Cells 0.0 % Sodium Level 142 mmol/L (136-145) Potassium Level 3.5 mmol/L (3.5-5.1) Chloride Level 101 mmol/L (98-107) Carbon Dioxide Level 28 mmol/L (20-31) Anion Gap 13 (5-15) Blood Urea Nitrogen 20 mg/dL (9-23) Creatinine 1.32 mg/dL (0.700-1.30) Glomerular Filtration Rate Calc 59 mL/min (>90) BUN/Creatinine Ratio 15.2 (10.0-20.0) Serum Glucose 89 mg/dL (74-106) Calcium Level 8.7 mg/dL (8.7-10.4) Total Bilirubin 1.0 mg/dL (0.2-1.0) Aspartate Amino Transferase (AST) 25 U/L (13-40) Alanine Aminotransferase (ALT) 27 U/L (7-40) Alkaline Phosphatase 97 U/L (46-116) Total Protein 6.3 g/dL (5.7-8.2) Albumin 3.4 g/dL (3.2-4.8) Erythrocyte Sedimentation Rate 86 mm/hr (0-20) Urine Color Yellow (Yellow) Urine Clarity Clear (Clear) Urine pH 5.5 (5.0-9.0) Urine Specific [place] 1.023 (1.001-1.035) Urine Protein Trace (Negative) Urine Ketones Negative (Negative) Urine Blood Negative /uL (Negative) Urine Nitrite Negative (Negative) Urine Bilirubin Negative (Negative) Urine Urobilinogen 2 mg/dL (Negative) Urine Leukocyte Esterase Negative /uL (Negative) Urine RBC 1 /hpf (0 - 3) Urine Microscopic WBC 2 /HPF (0-3) Urine Squamous Epithelial Cells None seen /hpf (<5) Urine Bacteria None seen /hpf (None Seen) Urine Glucose Normal mg/dL (Normal) Test 06/27/25 09:43 06/27/25 00:25 Urine Opiates Screen Pos (NEGATIVE) Urine Fentanyl Screen Neg (NEGATIVE) Urine Barbiturates Screen Neg (NEGATIVE) Urine Phencyclidine Screen Neg (NEGATIVE) Urine Amphetamines Screen Neg (NEGATIVE) Urine Benzodiazepines Screen Neg (NEGATIVE) Urine Cocaine Screen Neg (NEGATIVE) Urine Cannabinoids Screen Pos (NEGATIVE) Prothrombin Time 12.9 sec (9.3-11.8) Prothrombin Time INR 1.24 (0.9-1.15) Activated Partial Thromboplast Time 52.1 SEC (24.5-34.5) Lactic Acid Level 1.3 mmol/L (0.4-2.0) C-Reactive Protein High Sensitivity > 20.00 mg/dL (<1.0) Other Laboratory Tests 06/29/25 06:05 Brief Hx & Hospital Course: Covering: A 64-year-old male patient; with multiple comorbidities; who presented to emergency department with left lower extremity wound. associated with swelling and pain. Details as below. For further details please review EMR. Sepsis due to left lower extremity cellulitis in the setting of infected wound and suspected osteomyelitis of left foot; transient bacteremia; initial blood culture was Gram-positive rods; repeat blood culture with no growth Moderate left knee effusion Acute hypoxic respiratory failure; unclear etiology as chest x-ray showing only atelectasis TAD in the setting of sepsis; most likely vasomotor nephropathy Elevated LFTs History of AFib; on dabigatran Hypertensive heart disease with congestive heart failure Left lower extremities bladder wound; present on admission Marijuana use disorder Obesity Reviewed available lab work and imaging studies Ordered duplex ultrasound for left lower extremities in the setting of severe edema to rule out decrease in arterial blood supply; results as below The patient declined MRI of left ankle/foot; prefers MRI to be done at [facility] To continue broad-spectrum IV antibiotics upon transfer to [facility] To continue antihypertensive medications and adjust according to blood pressure monitoring at [facility] To continue oxygen therapy as needed at [facility] and during transfer To avoid nephrotoxic agents Reviewed the available blood cultures and wound cultures Consulted Orthopedic surgery for moderate left knee effusion and consulted Podiatry for suspected osteomyelitis of left foot; unfortunately none evaluated the patient during this admission Counseled on adopting healthy lifestyle with diet and exercise in order to lose weight Counseled on marijuana use cessation for 16 minutes Stable to be transferred to [facility]; available medical records was transferred to [facility] Transfer paperwork was filled and [facility] Late Entry. This medical document was created using an electronic medical record system with computerized dictation system. Although this document has been carefully reviewed, there might still be some phonetic and typographical errors. These areas are purely typographical due to imperfections of the software programs, and do not reflect any compromise in the patient's medical care. Consults/Reason for consult As above Condition at Discharge: Stable Final Diagnosis/Problems List Suspected osteomyelitis Discharge Disposition: Acute Care Facility ([facility]) Discharge Instruct/Medications Diet: Consistent carbohydrate, Cardiac 2g Na,low cholest Activity: No Restrictions, As Tolerated Follow Up/Referral: As per [facility] Medications: As per transfer paperwork Scheduled Amiodarone HCl (Amiodarone HCl), 1 TAB PO DAILY, (Reported) Ascorbic Acid (Vitamin C Tablet), 1 TAB PO DAILY, (Reported) Atorvastatin Calcium (Atorvastatin Calcium), 1 TAB PO DAILY, (Reported) Baclofen (Baclofen), 10 MG PO TID, (Reported) Biotin (Biotin), 1 MG PO DAILY, (Reported) Carvedilol (Carvedilol), 1 TAB PO BID, (Reported) Duloxetine HCl (Duloxetine HCl), 1 CAP PO DAILY, (Reported) Ferrous Sulfate (Ferrous Sulfate), 325 MG PO DAILY, (Reported) Multiple Vitamin (Multivitamins), 1 TAB PO DAILY, (Reported) Omeprazole (Omeprazole Dr), 1 CAP PO DAILY, (Reported) Pregabalin (Pregabalin), 1 CAP PO TID, (Reported) Miscellaneous Medications Ciclesonide (Alvesco), 80 MCG INH, (Reported) Dabigatran Etexilate Mesylate (Dabigatran Etexilate), CAP PO, (Reported) Ferrous Sulfate (Ferrous Sulfate), 65 MG PO, (Reported) Patients Own Medication (Patients Own Medication), (Reported) Discharge Statement: "Patient was advised to return to the ER or call 911 if any headaches, dizziness, shortness of breath, chest pain, abdominal pain, bleeding, fevers, or worsening of medical condition. Patient was counseled about treatment plan, medications, possible side effects, patientverbalized understanding. All questions were answered to the best of my ability. This discharge took greater then 30 minutes in planning, reviewing documentation, counseling the patient, and discussing with other team members." ASSESSMENT ASSESSMENT Assessment Suspected osteomyelitis Date of Service: Jun 29, 2025 Billing Provider: MARIA GUADALUPE PHOENIX MD Common Visit Codes: [id number] DISCH DAY >30min MARIA GUADALUPE PHOENIX MD Jun 29, 2025 18:28
--- NOTE | 2025-07-01 07:30 | ECG ---
[facility] Test Date: 2025-06-28 Test Time: 12:59:53 Pat Name: IKE THOMASON Department: Room: 0297 A Gender: M Ground Crewman: BP : 1960 Requested By: MARIA GUADALUPE PHOENIX Order Number: [id number] Reading MD: Aldo Pratt Measurements Intervals [place] Rate: 64 P: 0 [place]: 70 QRS: 21 QRSD: 104 T: 20 QT: 443 QTc: 457 Interpretive Statements Sinus rhythm Short [place] interval Anteroseptal infarct, old Electronically Signed On 07-02-2025 21:42:01 PDT by Aldo Pratt Please click the below link to view image of tracing.
--- NOTE | 2025-07-02 09:20 | ECG ---
[facility] Test Date: 2025-06-28 Test Time: 13:00:51 Pat Name: IKE THOMASON Department: Room: 0297 A Gender: M [employer]: : 1960 Requested By: KEM DURHAM Order Number: [id number] Reading MD: Aldo Pratt Measurements Intervals [place] Rate: 59 P: 24 MS: 213 QRS: 18 QRSD: 104 T: 1 QT: 423 QTc: 419 Interpretive Statements Sinus rhythm Anteroseptal infarct, age indeterminate Electronically Signed On 07-02-2025 21:42:13 PDT by Aldo Pratt Please click the below link to view image of tracing.
== END 2025-06-29 20:38 | disposition short-term general hospital (02) | DRG 871 ==
LOC: ER 23:35 → EDBD 23:35 → OVERFLOW 06-27 08:59 → WEST WING 06-27 15:48
PROVIDERS: ADMIT Internal Medicine; ATTEND Emergency Medicine
DX: A41.9 Sepsis, unspecified organism (principal); J96.01 Acute respiratory failure with hypoxia; N17.0 Acute kidney failure with tubular necrosis; L03.116 Cellulitis of left lower limb; J98.11 Atelectasis; M86.9 Osteomyelitis, unspecified; I50.9 Heart failure, unspecified; I11.0 Hypertensive heart disease with heart failure; R65.20 Severe sepsis without septic shock; F12.10 Cannabis abuse, uncomplicated; E66.811 Obesity, class 1; Z68.30 Body mass index [BMI] 30.0-30.9, adult; M25.462 Effusion, left knee; I48.91 Unspecified atrial fibrillation; E80.6 Other disorders of bilirubin metabolism; R74.01 Elevation of levels of liver transaminase levels; Z88.8 Allergy status to other drugs, medicaments and biological substances
CPT/HCPCS: 36415; 71045; 73700; 80048; 80053; 80307; 81001; 83605; 85025; 85610; 85652; 85730; 86141; 87040; 87077; 87081; 87186; 87205; 93005; 93926; 93970; 94640; 96365; 96375; 99291; G0378; J2405; J2543